=== PATIENT | male | born 1950 | race Two or more races ===

== ENCOUNTER 2018-11-09 16:19 | Inpatient (IN) | payer MEDICARE, MEDICAID ==
[~2018-11-09] VITALS: Ht 152.4 cm; Wt 77.1 kg
[2018-11-09] MEDS ORDERED: SODIUM CHLORIDE 0.9% 1,000 ML IV ONE (16:49)
[2018-11-09] MEDS ORDERED: KETOROLAC 30MG/ML VIAL IV STA (16:49)
[2018-11-09 17:15] LABS: BASOPHILS % 1.6 % (0.0-2.0); EOSINOPHILS % 1.5 % (0.0-5.0); HEMATOCRIT. 41.6 % (42.0-52.0); HEMOGLOBIN. 13.8 g/dL (14.0-18.0); LYMPHOCYTES % 31.4 % (20.0-50.0); MEAN CORPUSCULAR HEMOGLOBIN 27.9 pg (28.0-32.0); MEAN CORPUSCULAR VOLUME 84.6 fL (80.0-94.0); MEAN PLATELET VOLUME 8.3 fl (7.4-10.4); MONOCYTES % 6.9 % (2.0-8.0); NEUTROPHILS % 58.6 % (40.0-76.0); PLATELET 370 x1000/uL (130-400); RED BLOOD CELL COUNT 4.92 mill/uL (4.7-6.1); RED CELL DISTRIBUTION WIDTH 14.7 % (11.6-14.6)
[2018-11-09 17:26] LABS: CHLORIDE 110 mEq/L (98-107)
[2018-11-09 17:34] LABS: ETHANOL BLOOD < 10 mg/dL
[2018-11-09 17:37] LABS: CREATINE KINASE MB FRACTION 1.1 ng/mL (0.5-3.6)
[2018-11-09 17:38] LABS: CREATINE KINASE 180 IU/L (39-308)
[2018-11-09 19:26] LABS: CLARITY URINE CLEAR (CLEAR); COLOR URINE YELLOW (YELLOW); KETONES URINE NEGATIVE (NEGATIVE); LEUKOCYTE ESTERASE URINE NEGATIVE (NEGATIVE); NITRITE URINE NEGATIVE (NEGATIVE); OCCULT BLOOD URINE NEGATIVE (NEGATIVE); PH URINE 6.5 (4.5-8.0); PROTEIN URINE 4+ (NEGATIVE); UROBILINOGEN URINE 0.2 E.U./dL (0.2-1.0)
[2018-11-09 19:44] LABS: *AMPHETAMINES SCREEN URINE NEGATIVE (NEGATIVE); *BENZODIAZEPINES SCREEN URINE NEGATIVE (NEGATIVE); *COCAINE SCREEN URINE NEGATIVE (NEGATIVE); CANNABINOID URINE SCREEN NEGATIVE (NEGATIVE); METHADONE URINE SCREEN NEGATIVE (NEGATIVE); OPIATES URINE SCREEN NEGATIVE (NEGATIVE); PHENCYCLIDINE URINE SCREEN NEGATIVE (NEGATIVE)
[2018-11-09 19:45] LABS: *BARBITURATES SCREEN URINE NEGATIVE (NEGATIVE)
[2018-11-09] MEDS ORDERED: CEFTRIAXONE 1 G PREMIX 50 ML IV ONE (20:45)
[2018-11-09] MEDS ORDERED: ENALAPRIL 2.5MG TABLET PO ONE (21:45)
[2018-11-09 22:30] VITALS: BP 172/89
[2018-11-09] MEDS ORDERED: CLONIDINE 0.1MG TABLET PO PRN (23:30)
[2018-11-09] MEDS ORDERED: MAGNESIUM/ALUMINUM HYDROXIDE/SIMETHICONE 30ML UDC PO PRN (23:30)
[2018-11-09] MEDS ORDERED: ONDANSETRON HCL 4MG/2ML INJ IV PRN (23:30)
[2018-11-09] MEDS ORDERED: IBUPROFEN 600MG TABLET PO PRN (23:30)
[2018-11-09] MEDS ORDERED: DIPHENHYDRAMINE 50MG/ML VIAL IV PRN (23:30)
[2018-11-10] VITALS: BP 172/89
[2018-11-10] MEDS ORDERED: MVI, ADULT NO.1 10 ML, FOLIC ACID 1 MG, THIAMINE HCL 100 MG in SODIUM CHLORIDE 0.9% 1,0... IV SCH ×4 (01:00)
[2018-11-10] MEDS: TRAZODONE HCL 50MG TABLET PO SCH ×2 (01:10→20:16)
[2018-11-10] MEDS ORDERED: METHOCARBAMOL 750MG TABLET PO PRN (02:00)
[2018-11-10 04:00] VITALS: BP 124/73
[2018-11-10] MEDS: CLONIDINE 0.1MG TABLET PO SCH ×3 (05:17→21:25)
[2018-11-10 08:00] VITALS: BP 142/60
[2018-11-10] MEDS ORDERED: ISOS30TA12 MT (08:08)
[2018-11-10] MEDS ORDERED: AMLO5TAB88 MT (08:11)
[2018-11-10] MEDS ORDERED: SIMV20TA6 MT (08:11)
[2018-11-10] MEDS ORDERED: TRAZ-251 MT (08:11)
[2018-11-10] MEDS ORDERED: CLON0.1T MT (08:11)
[2018-11-10] MEDS ORDERED: METH-612 MT (08:11)
[2018-11-10] MEDS: AMLODIPINE 5MG TABLET PO SCH ×2 (10:11→20:16)
[2018-11-10] MEDS: KETOROLAC 30MG/ML VIAL IV PRN ×2 (10:12→20:17)
[2018-11-10 12:00] VITALS: BP 132/69
[2018-11-10 16:00] VITALS: BP 137/68
[2018-11-10 20:00] VITALS: BP 135/68
[2018-11-11] VITALS: BP 146/82
[2018-11-11] MEDS: KETOROLAC 30MG/ML VIAL IV PRN (05:45)
[2018-11-11] MEDS: CLONIDINE 0.1MG TABLET PO SCH ×3 (05:55→22:03)
[2018-11-11 08:00] VITALS: BP 132/68
[2018-11-11] MEDS: AMLODIPINE 5MG TABLET PO SCH ×2 (08:55→22:03)
[2018-11-11 12:00] VITALS: BP 128/64
[2018-11-11 16:00] VITALS: BP 120/67
[2018-11-11 20:00] VITALS: BP 136/76
[2018-11-11] MEDS: TRAZODONE HCL 50MG TABLET PO SCH (22:03)
[2018-11-11] MEDS: IPRATROPIUM/ALBUTEROL 0.5-3(2.5)MG/3ML NEB HHN PRN (22:21)
[2018-11-12] VITALS: BP 136/78
[2018-11-12 04:00] VITALS: BP 137/75
[2018-11-12] MEDS: CLONIDINE 0.1MG TABLET PO SCH (06:40)
[2018-11-12 08:00] VITALS: BP 120/63
[2018-11-12] MEDS: AMLODIPINE 5MG TABLET PO SCH (08:42)
[2018-11-12] MEDS: IPRATROPIUM/ALBUTEROL 0.5-3(2.5)MG/3ML NEB HHN PRN (09:34)
[2018-11-12 12:00] VITALS: BP 128/62
[2018-11-12 12:22] VITALS: BP 128/62
[2018-12-13] MEDS ORDERED: AZIT500T5 PO (12:29)
[2018-12-13] MEDS ORDERED: DILT300C35 PO (12:29)
[2018-12-13] MEDS ORDERED: ATOR20TA PO (12:29)
[2018-12-13] MEDS ORDERED: ALBU2.5V13 HHN (12:29)
== END 2018-11-12 13:50 | DRG 683 ==
LOC: ER 16:19 → 6EST 20:20 → ENRESERV 20:59
PROVIDERS: ADMIT Internal Medicine; ATTEND Internal Medicine
DX: N17.9 Acute kidney failure, unspecified (principal); E44.1 Mild protein-calorie malnutrition; R53.1 Weakness; I10 Essential (primary) hypertension; E78.00 Pure hypercholesterolemia, unspecified; M19.90 Unspecified osteoarthritis, unspecified site; E78.5 Hyperlipidemia, unspecified; F20.9 Schizophrenia, unspecified; F32.9 Major depressive disorder, single episode, unspecified; Z88.6 Allergy status to analgesic agent; Z88.8 Allergy status to other drugs, medicaments and biological substances; Z59.0 Homelessness; Z87.891 Personal history of nicotine dependence; Z79.899 Other long term (current) drug therapy
CPT/HCPCS: 36415; 71045; 80305; 80307; 80320; 80329; 81003; 82550; 82553; 83735; 84484; 93005; 93306; 94640; 97116; 97162; 99285; J0696; J1885; J3411; J3490; J7030; J7620; G0480

== ENCOUNTER 2018-12-10 11:12 | Inpatient (IN) | payer MEDICAID, MEDICARE ==
[~2018-12-10] VITALS: Ht 152.4 cm; Wt 79.4 kg
[~2018-12-10 11:12] MED LIST: AMLO5TAB88 MT; CLON0.1T MT; ISOS30TA12 MT; METH-612 MT; SIMV20TA6 MT; TRAZ-251 MT
[2018-12-10 12:17] LABS: BASOPHILS % 0.9 % (0.0-2.0); EOSINOPHILS % 2.5 % (0.0-5.0); HEMATOCRIT. 39.3 % (42.0-52.0); HEMOGLOBIN. 13.3 g/dL (14.0-18.0); LYMPHOCYTES % 30.7 % (20.0-50.0); MEAN CORPUSCULAR HEMOGLOBIN 28.6 pg (28.0-32.0); MEAN CORPUSCULAR VOLUME 84.3 fL (80.0-94.0); MEAN PLATELET VOLUME 8.1 fl (7.4-10.4); MONOCYTES % 9.9 % (2.0-8.0); PLATELET 399 x1000/uL (130-400); RED BLOOD CELL COUNT 4.66 mill/uL (4.7-6.1); RED CELL DISTRIBUTION WIDTH 14.5 % (11.6-14.6)
[2018-12-10 12:24] LABS: CHLORIDE 105 mEq/L (98-107); PROTHROMBIN TIME 9.9 sec (9.6-11.0)
[2018-12-10 13:16] LABS: CLARITY URINE CLEAR (CLEAR); COLOR URINE YELLOW (YELLOW); KETONES URINE NEGATIVE (NEGATIVE); LEUKOCYTE ESTERASE URINE 1+ (NEGATIVE); NITRITE URINE NEGATIVE (NEGATIVE); OCCULT BLOOD URINE NEGATIVE (NEGATIVE); PROTEIN URINE 2+ (NEGATIVE); SPECIFIC GRAVITY URINE 1.008 (1.005-1.030); UROBILINOGEN URINE 0.2 E.U./dL (0.2-1.0)
[2018-12-10] MEDS ORDERED: CEFTRIAXONE 1 G PREMIX 50 ML IV ONE (13:30)
[2018-12-10] MEDS ORDERED: CEFTRIAXONE 1,000 MG in DEXTROSE 5% WATER 50 ML IV NR (13:30)
[2018-12-10 18:50] VITALS: BP 149/77
[2018-12-10 20:00] VITALS: BP 157/90
[2018-12-10 20:06] VITALS: BP 149/77
[2018-12-10] MEDS: METHOCARBAMOL 750MG TABLET PO SCH (23:30)
[2018-12-10] MEDS: TRAMADOL 50MG TABLET PO PRN (23:37)
[2018-12-11] VITALS: BP 145/84
[2018-12-11 04:00] VITALS: BP 147/72
[2018-12-11 07:35] LABS: LDL CHOLESTEROL 104 mg/dL (5-100)
[2018-12-11 07:37] LABS: CREATINE KINASE 289 IU/L (39-308); HDL CHOLESTEROL 35 mg/dL (40-59)
[2018-12-11 07:38] LABS: CREATINE KINASE MB FRACTION 1.9 ng/mL (0.5-3.6)
[2018-12-11 08:00] VITALS: BP 147/72
[2018-12-11] MEDS ORDERED: PNEUMOCOCCAL 23-VAL P-SAC VAC 0.5 ML IM ONE (08:00)
[2018-12-11] MEDS: METHOCARBAMOL 750MG TABLET PO SCH ×3 (08:44→23:22)
[2018-12-11] MEDS: TRAMADOL 50MG TABLET PO PRN ×2 (08:45→13:48)
[2018-12-11] MEDS: ENOXAPARIN 40MG/0.4ML SYR SUBCUT SCH (08:46)
[2018-12-11] MEDS ORDERED: AMLODIPINE 5MG TABLET PO SCH (09:00)
[2018-12-11] MEDS ORDERED: INFLUENZA VIRUS VACCINE(AFLURIA) 0.5ML SYR IM ONE (10:00)
[2018-12-11 12:14] VITALS: BP 137/75
[2018-12-11] MEDS ORDERED: GUAIFENESIN/CODEINE 100-10MG/5ML UDC PO PRN ×2 (12:30→19:30)
[2018-12-11] MEDS ORDERED: ZOLPIDEM TARTRATE 5MG TABLET PO PRN (12:30)
[2018-12-11] MEDS: CELECOXIB 200MG CAPSULE PO SCH (13:47)
[2018-12-11 17:20] VITALS: BP 147/73
[2018-12-11] MEDS ORDERED: CLONIDINE 0.1MG TABLET PO PRN (19:30)
[2018-12-11] MEDS ORDERED: MORPHINE SULFATE 2 MG/ML CPJ (NOT FOR IM USE) IV PRN (19:30)
[2018-12-11 20:00] VITALS: BP 119/74
[2018-12-11] MEDS ORDERED: METHOCARBAMOL 750MG TABLET PO SCH (21:00)
[2018-12-11] MEDS: ALBUTEROL (0.083%) 2.5MG/3ML NEB HHN SCH (21:25)
[2018-12-11] MEDS: ATORVASTATIN CALCIUM 20MG TABLET PO SCH (21:49)
[2018-12-11] MEDS: AMLODIPINE 5MG TABLET PO SCH (21:49)
[2018-12-11 22:17] LABS: CHLORIDE 106 mEq/L (98-107)
[2018-12-11] MEDS: ZOLPIDEM TARTRATE 5MG TABLET PO PRN (23:22)
[2018-12-11] MEDS ORDERED: DIPHENHYDRAMINE 50MG/ML VIAL IV PRN (23:45)
[2018-12-12] VITALS: BP 149/83
[2018-12-12 00:17] LABS: BASOPHILS % 0.6 % (0.0-2.0); EOSINOPHILS % 2.4 % (0.0-5.0); HEMATOCRIT. 42.7 % (42.0-52.0); HEMOGLOBIN. 14.3 g/dL (14.0-18.0); MEAN CORPUSCULAR HEMOGLOBIN 28.3 pg (28.0-32.0); MEAN CORPUSCULAR VOLUME 84.6 fL (80.0-94.0); MEAN PLATELET VOLUME 8.3 fl (7.4-10.4); MONOCYTES % 10.5 % (2.0-8.0); NEUTROPHILS % 52.5 % (40.0-76.0); PLATELET 400 x1000/uL (130-400); RED BLOOD CELL COUNT 5.05 mill/uL (4.7-6.1)
[2018-12-12] MEDS: ALBUTEROL (0.083%) 2.5MG/3ML NEB HHN SCH ×4 (00:40→21:33)
[2018-12-12 04:03] VITALS: BP 137/66
[2018-12-12 08:00] VITALS: BP 172/105
[2018-12-12] MEDS: METHOCARBAMOL 750MG TABLET PO SCH ×2 (08:36→16:29)
[2018-12-12] MEDS: CELECOXIB 200MG CAPSULE PO SCH (08:40)
[2018-12-12] MEDS: AMLODIPINE 5MG TABLET PO SCH (08:40)
[2018-12-12] MEDS: ENOXAPARIN 40MG/0.4ML SYR SUBCUT SCH (08:41)
[2018-12-12] MEDS: ONDANSETRON HCL 4MG/2ML INJ IV PRN (08:59)
[2018-12-12] MEDS ORDERED: ISOSORBIDE MONONITRATE 30MG TABLET SR 24HR PO SCH (09:00)
[2018-12-12 12:00] VITALS: BP 121/70
[2018-12-12 16:00] VITALS: BP 138/76
[2018-12-12] MEDS: IBUPROFEN 200MG TABLET PO PRN ×3 (16:28→23:18)
[2018-12-12] MEDS: DILTIAZEM HCL 60MG TABLET PO SCH ×2 (16:30→18:52)
[2018-12-12] MEDS ORDERED: GUAIFENESIN-DM 200MG-20MG/10ML UDC PO PRN (18:15)
[2018-12-12 18:17] LABS: CLARITY URINE CLOUDY (CLEAR); COLOR URINE YELLOW (YELLOW); KETONES URINE NEGATIVE (NEGATIVE); LEUKOCYTE ESTERASE URINE TRACE (NEGATIVE); NITRITE URINE NEGATIVE (NEGATIVE); OCCULT BLOOD URINE TRACE (NEGATIVE); PROTEIN URINE 4+ (NEGATIVE); SPECIFIC GRAVITY URINE 1.021 (1.005-1.030); UROBILINOGEN URINE 0.2 E.U./dL (0.2-1.0)
[2018-12-12] MEDS: AZITHROMYCIN 500 MG TABLET PO SCH (18:54)
[2018-12-12 20:00] VITALS: BP 132/72
[2018-12-12 20:45] LABS: BASOPHILS % 1.2 % (0.0-2.0); EOSINOPHILS % 3.1 % (0.0-5.0); HEMATOCRIT. 39.3 % (42.0-52.0); HEMOGLOBIN. 13.2 g/dL (14.0-18.0); LYMPHOCYTES % 36.3 % (20.0-50.0); MEAN CORPUSCULAR HEMOGLOBIN 28.2 pg (28.0-32.0); MEAN CORPUSCULAR VOLUME 83.7 fL (80.0-94.0); MEAN PLATELET VOLUME 7.9 fl (7.4-10.4); MONOCYTES % 12.2 % (2.0-8.0); NEUTROPHILS % 47.2 % (40.0-76.0); PLATELET 361 x1000/uL (130-400); RED BLOOD CELL COUNT 4.69 mill/uL (4.7-6.1); RED CELL DISTRIBUTION WIDTH 14.4 % (11.6-14.6)
[2018-12-12 20:46] LABS: CHLORIDE 104 mEq/L (98-107)
[2018-12-12] MEDS: ATORVASTATIN CALCIUM 20MG TABLET PO SCH (20:48)
[2018-12-12] MEDS: ZOLPIDEM TARTRATE 5MG TABLET PO PRN (23:12)
[2018-12-13] VITALS (7 sets, daily range): BP systolic 116–172; BP diastolic 54–84
[2018-12-13] MEDS: METHOCARBAMOL 750MG TABLET PO SCH ×3 (00:30→18:16)
[2018-12-13] MEDS: DILTIAZEM HCL 60MG TABLET PO SCH ×2 (00:30→05:34)
[2018-12-13] MEDS: ALBUTEROL (0.083%) 2.5MG/3ML NEB HHN SCH ×4 (02:33→21:40)
[2018-12-13] MEDS: AZITHROMYCIN 500 MG TABLET PO SCH (09:41)
[2018-12-13] MEDS: CELECOXIB 200MG CAPSULE PO SCH (09:41)
[2018-12-13] MEDS: ENOXAPARIN 40MG/0.4ML SYR SUBCUT SCH (09:42)
[2018-12-13] MEDS: IBUPROFEN 200MG TABLET PO PRN ×3 (09:48→23:18)
[2018-12-13] MEDS: ONDANSETRON HCL 4MG/2ML INJ IV PRN ×2 (09:49→16:34)
[2018-12-13] MEDS ORDERED: ATOR20TA PO (12:29)
[2018-12-13] MEDS ORDERED: ALBU2.5V13 HHN (12:29)
[2018-12-13] MEDS ORDERED: AZIT500T5 PO (12:29)
[2018-12-13] MEDS ORDERED: DILT300C35 PO (12:29)
[2018-12-13 13:21] LABS: HEMATOCRIT. 41.8 % (42.0-52.0); MEAN CORPUSCULAR VOLUME 83.6 fL (80.0-94.0); RED CELL DISTRIBUTION WIDTH 14.4 % (11.6-14.6)
[2018-12-13 13:26] LABS: CHLORIDE 107 mEq/L (98-107)
[2018-12-13 13:52] LABS: PLATELET ESTIMATE SLIGHTLY INCREASED
[2018-12-13 13:54] LABS: MEAN PLATELET VOLUME 8.1 fl (7.4-10.4); PLATELET 408 x1000/uL (130-400)
[2018-12-13] MEDS: DILTIAZEM HCL 300MG CAPSULE SR 24HR PO SCH (14:45)
[2018-12-13] MEDS: ATORVASTATIN CALCIUM 20MG TABLET PO SCH (21:47)
[2018-12-13] MEDS: ZOLPIDEM TARTRATE 5MG TABLET PO PRN (23:14)
[2018-12-14] VITALS: BP 152/82
[2018-12-14] MEDS: METHOCARBAMOL 750MG TABLET PO SCH ×3 (01:01→16:42)
[2018-12-14] MEDS: ALBUTEROL (0.083%) 2.5MG/3ML NEB HHN SCH ×2 (02:57→09:49)
[2018-12-14 04:00] VITALS: BP 129/54
[2018-12-14 08:00] VITALS: BP 143/88
[2018-12-14] MEDS: AZITHROMYCIN 500 MG TABLET PO SCH (10:23)
[2018-12-14] MEDS: CELECOXIB 200MG CAPSULE PO SCH (10:23)
[2018-12-14] MEDS: DILTIAZEM HCL 300MG CAPSULE SR 24HR PO SCH (10:23)
[2018-12-14] MEDS: ENOXAPARIN 40MG/0.4ML SYR SUBCUT SCH (10:39)
[2018-12-14 10:42] LABS: BASOPHILS % 1.4 % (0.0-2.0); EOSINOPHILS % 3.2 % (0.0-5.0); HEMATOCRIT. 41.9 % (42.0-52.0); HEMOGLOBIN. 13.9 g/dL (14.0-18.0); LYMPHOCYTES % 21.3 % (20.0-50.0); MEAN CORPUSCULAR HEMOGLOBIN 28.3 pg (28.0-32.0); MEAN CORPUSCULAR VOLUME 85.2 fL (80.0-94.0); MONOCYTES % 8.1 % (2.0-8.0); RED BLOOD CELL COUNT 4.92 mill/uL (4.7-6.1); RED CELL DISTRIBUTION WIDTH 14.2 % (11.6-14.6)
[2018-12-14 10:43] LABS: CHLORIDE 108 mEq/L (98-107)
[2018-12-14 12:00] VITALS: BP 146/66
[2018-12-14 13:45] LABS: PLATELET 328 x1000/uL (130-400)
[2018-12-14 15:17] VITALS: BP 146/66
== END 2018-12-14 19:40 | DRG 392 ==
LOC: ER 12:51 → EDBEDREQTM 15:42 → EDBEDREQ 15:42 → ENRESERV 16:48 → 6WST 17:00
PROVIDERS: ADMIT Family Medicine; ATTEND Family Medicine
DX: K21.9 Gastro-esophageal reflux disease without esophagitis (principal); N39.0 Urinary tract infection, site not specified; I13.0 Hypertensive heart and chronic kidney disease with heart failure and stage 1 through stage 4 chronic kidney disease, or unspecified chronic kidney disease; I50.32 Chronic diastolic (congestive) heart failure; J98.11 Atelectasis; R07.81 Pleurodynia; J40 Bronchitis, not specified as acute or chronic; M19.90 Unspecified osteoarthritis, unspecified site; N18.2 Chronic kidney disease, stage 2 (mild); G47.00 Insomnia, unspecified; E78.5 Hyperlipidemia, unspecified; F20.9 Schizophrenia, unspecified; E78.00 Pure hypercholesterolemia, unspecified; E66.9 Obesity, unspecified; Z68.33 Body mass index [BMI] 33.0-33.9, adult; Z87.891 Personal history of nicotine dependence; Z59.0 Homelessness; Z88.6 Allergy status to analgesic agent; Z88.8 Allergy status to other drugs, medicaments and biological substances
CPT/HCPCS: 36415; 71045; 76770; 80061; 81003; 82550; 82553; 83605; 83880; 84484; 90686; 93005; 93306; 94640; 96365; 99285; J0696; J1200; J1650; J2405; J7040; J7060; J7611